=== PATIENT | male | born 1945 | race Caucasian/White ===

== ENCOUNTER 2021-01-07 02:47 | Inpatient (IN) ==
[2021-01-07] MEDS ORDERED: MORPHINE 2 MG/1 ML SYRINGE IV STA (03:10)
[2021-01-07] MEDS ORDERED: ONDANSETRON 4 MG/2 ML VIAL IV STA (03:10)
[2021-01-07] MEDS ORDERED: SODIUM CHLORIDE 0.9% 1,000 ML IV STA ×2 (03:10→04:11)
[2021-01-07] MEDS ORDERED: PANTOPRAZOLE 40 MG VIAL IV STA (03:10)
[2021-01-07 03:34] LABS: Basophils % 0.2 % (0.0-0.8); Hematocrit 44.3 VOL% (42.0-52.0); Hemoglobin 13.8 GM/DL (14.0-18.0); Immature Granulocytes % 0.9 %; Immature Granulocytes Absolute 0.05 #; Lymphocytes # 0.2 10*3/uL (1.4-4.0); Lymphocytes % 3.5 % (21.2-54.2); Mean Corpuscular HGB Conc 31.2 GM/DL (32-36); Mean Corpuscular Volume 86.7 FL (87-102); Mean Platelet Volume 9.9 FL (9.6-12.0); Neutrophils % 88.4 % (38.7-73.9); Platelet Count 271 T/CUMM (130-400); Red Blood Count 5.11 MC/CUMM (3.8-5.5); Red Cell Distribution Width 16.6 % (9.3-17.3); White Blood Count 5.4 T/CUMM (4-12)
[2021-01-07 03:53] LABS: Band Neutrophils 3 % (0-10); Lymphocytes 2 % (20-55); Segmented Neutrophils 89 % (50-85); Total Cells Counted 100
[2021-01-07 03:54] LABS: Platelet Estimate Adequate
[2021-01-07 04:06] LABS: Alanine Aminotransferase 20 U/L (16-61); Albumin 3.2 G/DL (3.4-5.0); Alkaline Phosphatase 105 U/L (45-117); Amylase 46 U/L (25-115); Aspartate Amino Transferase 10 U/L (0-37); Blood Urea Nitrogen 46 MG/DL (7-18); Calcium 10.2 MG/DL (8.5-10.1); Carbon Dioxide 11 MMOL/L (21-32); Estimated Glom Filtration Rate 31 ML/MIN; Osmolality,Calculated 322.4 MOS/KG (273-304); Potassium 4.3 MMOL/L (3.5-5.1); Sodium 140 MMOL/L (136-145); Total Protein 6.9 G/DL (6.4-8.2)
[2021-01-07 04:10] LABS: Glucose 677 MG/DL (74-106)
[2021-01-07 04:11] LABS: Bilirubin,Urine Negative (Negative); Blood, Urine Negative (Negative); Glucose,Urine (UA) >=500 mg/dL (Negative); Hyaline Casts,Urine 4 /LPF (0-3); Ketones,Urine 80 mg/dL (Negative); Mucus,Urine Occasional /LPF (Occasional); Nitrite,Urine Negative (Negative); Protein,Urine Negative; RBC,Urine 17 /HPF (0-4); Squamous Epithelial Cell,Urine Occasional /HPF (0-10); Urine Appearance Slightly Hazy (Clear); Urine Color Yellow (Yellow); Urine Specific Gravity 1.023 (1.001-1.035); Urine Urobilinogen < 2.0 EU/DL (0.2-1.0)
[2021-01-07] MEDS ORDERED: INSULIN REGULAR 100 UNIT/ML IV ONE (04:11)
[2021-01-07] MEDS ORDERED: PIPERACILLIN/TAZOBACTAM 2,250 MG in SODIUM CHLORIDE 0.9% 100 ML IV STA (04:22)
[2021-01-07 04:39] LABS: ABG Base Excess -17.2 MMOL/L (-2.5-2.5); ABG HCO3 11.8 MMOL/L (20-26); ABG Oxygen Saturation 98.5 % (95-100); ABG PH 7.272 (7.35-7.45); ABG TCO2 7.5 MMOL/L (23-27)
[2021-01-07 05:00] LABS: ABG PCO2 18.2 MM HG (35-48)
[2021-01-07] MEDS ORDERED: SODIUM BICARBONATE 50 MEQ/50 ML VIAL IV STA (05:01)
[2021-01-07] MEDS ORDERED: MAGNESIUM SULF RIDER 4 GM/100 ML PREMIX IV PRN (05:45)
[2021-01-07] MEDS ORDERED: MAGNESIUM SULF RIDER 2 GM/50 ML PREMIX IV PRN (05:45)
[2021-01-07] MEDS ORDERED: SODIUM PHOSPHATE INJ 20 MMOL in SODIUM CHLORIDE 0.9% 250 ML IV PRN (05:45)
[2021-01-07] MEDS ORDERED: DEXTROSE 50% 25 GM/50 ML VIAL IV PRN ×2 (05:45)
[2021-01-07] MEDS ORDERED: SODIUM BICARB INJ 100 MEQ in STERILE WATER INJ 400 ML IV PRN (05:45)
[2021-01-07] MEDS ORDERED: ALBUTEROL 2.5 MG/3 ML NEB RESP TX PRN (05:49)
[2021-01-07] MEDS ORDERED: ALBUTEROL/IPRATROPIUM 3 ML NEB RESP TX PRN (05:55)
[2021-01-07] MEDS ORDERED: DOCUSATE SODIUM 100 MG CAPSULE PO PRN (05:55)
[2021-01-07] MEDS ORDERED: ACETAMINOPHEN 325 MG TABLET PO PRN (05:55)
[2021-01-07] MEDS ORDERED: INSULIN REGULAR DRIP 100 ML IV SCH (06:00)
[2021-01-07] MEDS: SODIUM CHLORIDE 0.9% 1,000 ML IV SCH ×2 (06:00→09:14)
[2021-01-07] MEDS: ONDANSETRON 4 MG/2 ML VIAL IV PRN (06:16)
[2021-01-07 07:20] LABS: Calcium 9.7 MG/DL (8.5-10.1); Osmolality,Calculated 313.8 MOS/KG (273-304); Potassium 4.1 MMOL/L (3.5-5.1)
[2021-01-07] MEDS ORDERED: DEXTROSE 5% NACL 0.9% 1,000 ML IV SCH ×2 (08:11→11:30)
[2021-01-07] MEDS: ENOXAPARIN 30 MG/0.3 ML SYRINGE SUBCUT SCH (08:36)
[2021-01-07] MEDS ORDERED: SODIUM CHLORIDE 0.9% 1,000 ML IV SCH (11:00)
[2021-01-07 11:27] LABS: Calcium 8.9 MG/DL (8.5-10.1); Osmolality,Calculated 306.3 MOS/KG (273-304); Potassium 3.5 MMOL/L (3.5-5.1)
[2021-01-07] MEDS: POTASSIUM CHLORIDE RIDER 10 MEQ/100 ML PREMIX IV PRN ×3 (11:36→14:29)
[2021-01-07] MEDS ORDERED: DEXTROSE 5% NACL 0.45% 1,000 ML IV SCH (13:00)
[2021-01-07 14:42] LABS: Calcium 8.2 MG/DL (8.5-10.1); Osmolality,Calculated 309.1 MOS/KG (273-304); Potassium 3.9 MMOL/L (3.5-5.1)
[2021-01-07] MEDS: CARBIDOPA/LEVODOPA 10-100 MG TABLET PO SCH ×2 (14:47→20:19)
[2021-01-07] MEDS: TRIAMCINOLONE 0.025% CREAM 15 GM TUBE TOP SCH ×2 (14:47→20:19)
[2021-01-07] MEDS ORDERED: DEXT 5% NACL 0.45% KCL 20 MEQ 20 MEQ/1,000 ML BAG IV SCH (15:00)
[2021-01-07] MEDS ORDERED: GLUCAGON 1 MG VIAL IM PRN (16:44)
[2021-01-07] MEDS: SODIUM CHLORIDE 0.45% 1,000 ML IV SCH (16:54)
[2021-01-07] MEDS ORDERED: INSULIN LISPRO 100 UNIT/ML SUBCUT SCH (18:00)
[2021-01-07] MEDS: INSULIN LISPRO 100 UNIT/ML SUBCUT SCH (19:42)
[2021-01-07] MEDS: INSULIN GLARGINE 100 UNIT/ML SUBCUT SCH (20:19)
[2021-01-07] MEDS ORDERED: SODIUM CHLORIDE 0.45% 1,000 ML IV SCH (23:00)
[2021-01-08] MEDS: INSULIN LISPRO 100 UNIT/ML SUBCUT SCH ×4 (00:25→17:06)
[2021-01-08] MEDS: SODIUM CHLORIDE 0.45% 1,000 ML IV SCH ×3 (00:26→17:01)
[2021-01-08 03:46] LABS: Basophils % 0.3 % (0.0-0.8); Hematocrit 26.9 VOL% (42.0-52.0); Immature Granulocytes % 0.9 %; Immature Granulocytes Absolute 0.03 #; Lymphocytes # 0.2 10*3/uL (1.4-4.0); Lymphocytes % 6.3 % (21.2-54.2); Mean Corpuscular HGB Conc 32.7 GM/DL (32-36); Mean Platelet Volume 10.3 FL (9.6-12.0); Monocytes % 10.4 % (1.7-12.7); Neutrophils % 82.1 % (38.7-73.9); Red Cell Distribution Width 16.5 % (9.3-17.3)
[2021-01-08 03:48] LABS: Hemoglobin 8.8 GM/DL (14.0-18.0); Platelet Count 162 T/CUMM (130-400); Red Blood Count 3.24 MC/CUMM (3.8-5.5); White Blood Count 3.5 T/CUMM (4-12)
[2021-01-08 04:02] LABS: Band Neutrophils 1 % (0-10); Hypochromasia 1+; Lymphocytes 6 % (20-55); Microcytosis 1+; Platelet Estimate Adequate; Segmented Neutrophils 88 % (50-85); Total Cells Counted 100
[2021-01-08] MEDS: ENOXAPARIN 30 MG/0.3 ML SYRINGE SUBCUT SCH (08:14)
[2021-01-08] MEDS: TRIAMCINOLONE 0.025% CREAM 15 GM TUBE TOP SCH ×2 (08:17→20:50)
[2021-01-08] MEDS: CARBIDOPA/LEVODOPA 10-100 MG TABLET PO SCH ×3 (08:17→20:48)
[2021-01-08 08:28] LABS: Calcium 8.7 MG/DL (8.5-10.1); Potassium 3.5 MMOL/L (3.5-5.1)
[2021-01-08] MEDS: ONDANSETRON 4 MG/2 ML VIAL IV PRN (08:28)
[2021-01-08] MEDS ORDERED: PANTOPRAZOLE 40 MG VIAL IV SCH (09:00)
[2021-01-08] MEDS ORDERED: POTASSIUM PHOSPHATE 30 MMOL in SODIUM CHLORIDE 0.9% 250 ML IV ONE (09:00)
[2021-01-08] MEDS ORDERED: ASPIRIN 325 MG TABLET PO SCH (09:00)
[2021-01-08] MEDS: SUCRALFATE 1 GM/10 ML UDCUP PO SCH ×2 (16:07→20:48)
[2021-01-08] MEDS: LOSARTAN 25 MG TABLET PO SCH (17:55)
[2021-01-08] MEDS: INSULIN GLARGINE 100 UNIT/ML SUBCUT SCH (20:48)
[2021-01-08] MEDS: PANTOPRAZOLE 40 MG VIAL IV SCH (20:48)
[2021-01-09] MEDS: INSULIN LISPRO 100 UNIT/ML SUBCUT SCH ×4 (00:52→18:21)
[2021-01-09] MEDS: SODIUM CHLORIDE 0.45% 1,000 ML IV SCH ×2 (01:49→08:39)
[2021-01-09 04:04] LABS: Hematocrit 24.6 VOL% (42.0-52.0); Immature Granulocytes % 1.5 %; Immature Granulocytes Absolute 0.04 #; Lymphocytes # 0.2 10*3/uL (1.4-4.0); Lymphocytes % 6.8 % (21.2-54.2); Mean Corpuscular HGB Conc 32.5 GM/DL (32-36); Mean Corpuscular Volume 82.8 FL (87-102); Mean Platelet Volume 9.1 FL (9.6-12.0); Neutrophils % 82.7 % (38.7-73.9); Platelet Count 145 T/CUMM (130-400); Red Blood Count 2.97 MC/CUMM (3.8-5.5); Red Cell Distribution Width 16.8 % (9.3-17.3); White Blood Count 2.7 T/CUMM (4-12)
[2021-01-09 04:21] LABS: Calcium 8.1 MG/DL (8.5-10.1); Osmolality,Calculated 285.1 MOS/KG (273-304); Potassium 3.1 MMOL/L (3.5-5.1)
[2021-01-09 04:34] LABS: Band Neutrophils 1 % (0-10); Hypochromasia 1+; Lymphocytes 4 % (20-55); Microcytosis 1+; Segmented Neutrophils 87 % (50-85); Total Cells Counted 100
[2021-01-09 04:35] LABS: Platelet Estimate Adequate
[2021-01-09] MEDS: POTASSIUM CHLORIDE RIDER 10 MEQ/100 ML PREMIX IV PRN ×4 (04:35→10:54)
[2021-01-09] MEDS: LACTATED RINGERS 1,000 ML IV SCH (06:49)
[2021-01-09] MEDS ORDERED: LIDOCAINE 2% 5 ML VIAL ONE (07:14)
[2021-01-09] MEDS ORDERED: propofoL 200 MG/20 ML VIAL IV ONE (07:14)
[2021-01-09] MEDS: SUCRALFATE 1 GM/10 ML UDCUP PO SCH ×4 (07:30→21:25)
[2021-01-09] MEDS ORDERED: ceFAZolin 1,000 MG VIAL ONE (07:53)
[2021-01-09] MEDS: PANTOPRAZOLE 40 MG VIAL IV SCH (09:45)
[2021-01-09] MEDS: LOSARTAN 25 MG TABLET PO SCH (09:45)
[2021-01-09] MEDS: CARBIDOPA/LEVODOPA 10-100 MG TABLET PO SCH ×3 (09:45→21:25)
[2021-01-09] MEDS ORDERED: hydrALAZINE 20 MG/1 ML VIAL IV PRN (09:46)
[2021-01-09] MEDS: TRIAMCINOLONE 0.025% CREAM 15 GM TUBE TOP SCH ×2 (09:46→21:25)
[2021-01-09] MEDS: FLUCONAZOLE INJ 100 MG/50 ML PREMIX IV SCH (09:53)
[2021-01-09] MEDS: ZINC OXIDE PASTE 113 GM TUBE TOP PRN ×3 (10:31→16:50)
[2021-01-09] MEDS: PHENOL 1.4% THROAT SPRAY 177 ML BOTTLE PO PRN ×2 (14:05→16:50)
[2021-01-09] MEDS: INSULIN GLARGINE 100 UNIT/ML SUBCUT SCH (21:25)
[2021-01-10] MEDS: INSULIN LISPRO 100 UNIT/ML SUBCUT SCH ×4 (00:50→18:44)
[2021-01-10 04:21] LABS: Basophils % 0.3 % (0.0-0.8); Hematocrit 27.3 VOL% (42.0-52.0); Hemoglobin 8.9 GM/DL (14.0-18.0); Immature Granulocytes % 1.6 %; Immature Granulocytes Absolute 0.05 #; Lymphocytes # 0.2 10*3/uL (1.4-4.0); Lymphocytes % 6.4 % (21.2-54.2); Mean Corpuscular HGB Conc 32.6 GM/DL (32-36); Mean Corpuscular Volume 84.8 FL (87-102); Mean Platelet Volume 9.3 FL (9.6-12.0); Monocytes % 8.9 % (1.7-12.7); Neutrophils % 82.8 % (38.7-73.9); Platelet Count 159 T/CUMM (130-400); Red Blood Count 3.22 MC/CUMM (3.8-5.5); Red Cell Distribution Width 16.7 % (9.3-17.3); White Blood Count 3.1 T/CUMM (4-12)
[2021-01-10 04:40] LABS: Calcium 8.5 MG/DL (8.5-10.1); Osmolality,Calculated 281.4 MOS/KG (273-304); Potassium 3.2 MMOL/L (3.5-5.1)
[2021-01-10 04:49] LABS: Band Neutrophils 1 % (0-10); Eosinophils 1 % (0-10); Hypochromasia 1+; Lymphocytes 7 % (20-55); Microcytosis 1+; Platelet Estimate Adequate; Segmented Neutrophils 83 % (50-85); Total Cells Counted 100
[2021-01-10] MEDS: POTASSIUM CHLORIDE RIDER 10 MEQ/100 ML PREMIX IV PRN ×4 (06:05→12:01)
[2021-01-10] MEDS: SUCRALFATE 1 GM/10 ML UDCUP PO SCH ×4 (08:50→20:21)
[2021-01-10] MEDS: CARBIDOPA/LEVODOPA 10-100 MG TABLET PO SCH ×3 (08:50→20:21)
[2021-01-10] MEDS: FAMOTIDINE 8 MG/ML 50 ML/BOTTLE PEG SCH (08:50)
[2021-01-10] MEDS: LOSARTAN 25 MG TABLET PO SCH (08:50)
[2021-01-10] MEDS: ENOXAPARIN 30 MG/0.3 ML SYRINGE SUBCUT SCH (08:52)
[2021-01-10] MEDS: TRIAMCINOLONE 0.025% CREAM 15 GM TUBE TOP SCH ×2 (08:53→20:21)
[2021-01-10] MEDS: FLUCONAZOLE INJ 100 MG/50 ML PREMIX IV SCH (09:10)
[2021-01-10] MEDS: LACTATED RINGERS 1,000 ML IV SCH (10:58)
[2021-01-10] MEDS ORDERED: MAGNESIUM CITRATE 300 ML BOTTLE NG ONE (17:24)
[2021-01-10] MEDS: INSULIN GLARGINE 100 UNIT/ML SUBCUT SCH (20:21)
[2021-01-10] MEDS: POTASSIUM PHOS/SOD PHOS 250 MG TABLET PEG SCH (20:41)
[2021-01-11 06:31] LABS: Eosinophils % 0.2 % (0.00-10.9); Hematocrit 31.1 VOL% (42.0-52.0); Hemoglobin 10.2 GM/DL (14.0-18.0); Immature Granulocytes % 1.7 %; Immature Granulocytes Absolute 0.07 #; Lymphocytes # 0.2 10*3/uL (1.4-4.0); Lymphocytes % 5.4 % (21.2-54.2); Mean Corpuscular HGB Conc 32.8 GM/DL (32-36); Mean Corpuscular Volume 83.8 FL (87-102); Mean Platelet Volume 9.3 FL (9.6-12.0); Monocytes % 11.5 % (1.7-12.7); Neutrophils % 81.2 % (38.7-73.9); Platelet Count 173 T/CUMM (130-400); Red Blood Count 3.71 MC/CUMM (3.8-5.5); White Blood Count 4.1 T/CUMM (4-12)
[2021-01-11 07:02] LABS: Calcium 8.7 MG/DL (8.5-10.1); Osmolality,Calculated 277.1 MOS/KG (273-304)
[2021-01-11 07:06] LABS: Lymphocytes 4 % (20-55); Platelet Estimate Normal; Segmented Neutrophils 89 % (50-85); Total Cells Counted 100
[2021-01-11] MEDS ORDERED: MAGNESIUM SULF RIDER 2 GM/50 ML PREMIX IV ONE (08:00)
[2021-01-11] MEDS ORDERED: FLUCONAZOLE INJ 100 MG/50 ML PREMIX IV SCH (10:00)
[2021-01-11] MEDS: TRIAMCINOLONE 0.025% CREAM 15 GM TUBE TOP SCH (10:40)
[2021-01-11] MEDS: SUCRALFATE 1 GM/10 ML UDCUP PO SCH ×2 (10:40→12:27)
[2021-01-11] MEDS: POTASSIUM PHOS/SOD PHOS 250 MG TABLET PEG SCH ×2 (10:40→12:27)
[2021-01-11] MEDS: LOSARTAN 25 MG TABLET PO SCH (10:40)
[2021-01-11] MEDS: CARBIDOPA/LEVODOPA 10-100 MG TABLET PO SCH ×2 (10:40→16:19)
[2021-01-11] MEDS: FAMOTIDINE 8 MG/ML 50 ML/BOTTLE PEG SCH (10:41)
[2021-01-11] MEDS: ENOXAPARIN 30 MG/0.3 ML SYRINGE SUBCUT SCH (10:41)
[2021-01-11] MEDS: INSULIN LISPRO 100 UNIT/ML SUBCUT SCH ×2 (12:19)
[2021-01-11] MEDS: POTASSIUM CHLORIDE RIDER 10 MEQ/100 ML PREMIX IV PRN ×2 (12:19→13:22)
[2021-01-11 15:54] VITALS: BP 144/52
[2021-01-11] MEDS ORDERED: NYSTATIN 500,000 UNIT/5 ML UDCUP SWISH/SWAL SCH (17:00)
== END 2021-01-11 16:05 | disposition home health service (06) | DRG 638 ==
LOC: N.ED 02:47 → SUATTDRO 04:58 → N.EDINP 04:58 → N.ICU 05:40 → N.2W 01-10 20:46
PROVIDERS: ADMIT Family Medicine; ATTEND Internal Medicine
PROC: EGDWPEG (ICD-10-PCS; 2021-01-09 08:35)

== ENCOUNTER 2021-01-31 12:51 | Inpatient (IN) ==
[2021-01-31] MEDS ORDERED: SODIUM CHLORIDE 0.9% 1,000 ML IV STA (13:33)
[2021-01-31] MEDS ORDERED: INSULIN REGULAR 100 UNIT/ML IV STA (13:46)
[2021-01-31 14:07] LABS: ABG HCO3 20.3 MMOL/L (20-26); ABG Oxygen Saturation 99.5 % (95-100); ABG PH 7.566 (7.35-7.45); ABG TCO2 13.8 MMOL/L (23-27)
[2021-01-31 14:09] LABS: ABG PCO2 16.9 MM HG (35-48)
[2021-01-31 14:15] LABS: Basophils % 0.1 % (0.0-0.8); Hematocrit 35.5 VOL% (42.0-52.0); Hemoglobin 11.3 GM/DL (14.0-18.0); Immature Granulocytes % 1.2 %; Lymphocytes % 25.2 % (21.2-54.2); Mean Corpuscular HGB Conc 31.8 GM/DL (32-36); Mean Corpuscular Volume 89.4 FL (87-102); Mean Platelet Volume 9.4 FL (9.6-12.0); Monocytes % 5.6 % (1.7-12.7); Neutrophils % 67.9 % (38.7-73.9); Platelet Count 349 T/CUMM (130-400); Red Blood Count 3.97 MC/CUMM (3.8-5.5); Red Cell Distribution Width 21.2 % (9.3-17.3)
[2021-01-31 14:47] LABS: Albumin 2.6 G/DL (3.4-5.0); Calcium 10.1 MG/DL (8.5-10.1); Potassium 4.6 MMOL/L (3.5-5.1); Total Protein 6.7 G/DL (6.4-8.2)
[2021-01-31 14:52] LABS: Bilirubin,Total 0.5 MG/DL (0.20-1.00); Osmolality,Calculated 314.7 MOS/KG (273-304)
[2021-01-31] MEDS ORDERED: SODIUM PHOSPHATE INJ 17.6 MMOL in SODIUM CHLORIDE 0.9% 250 ML IV PRN (15:08)
[2021-01-31] MEDS ORDERED: DEXTROSE 50% 25 GM/50 ML VIAL IV PRN ×2 (15:08)
[2021-01-31] MEDS ORDERED: INSULIN REGULAR 100 UNIT/ML IV ONE (15:08)
[2021-01-31] MEDS ORDERED: SODIUM BICARB INJ 100 MEQ in STERILE WATER INJ 400 ML IV PRN (15:08)
[2021-01-31] MEDS ORDERED: ALBUTEROL 2.5 MG/3 ML NEB RESP TX PRN (15:08)
[2021-01-31] MEDS ORDERED: SODIUM CHLORIDE 0.9% 1,000 ML IV ONE (15:08)
[2021-01-31] MEDS ORDERED: MAGNESIUM SULF RIDER 2 GM/50 ML PREMIX IV PRN (15:09)
[2021-01-31] MEDS ORDERED: MAGNESIUM SULF RIDER 4 GM/100 ML PREMIX IV PRN (15:09)
[2021-01-31] MEDS ORDERED: INSULIN REGULAR DRIP 100 ML IV SCH (15:30)
[2021-01-31] MEDS: SODIUM CHLORIDE 0.9% 1,000 ML IV SCH ×2 (17:30→21:19)
[2021-01-31 18:22] LABS: Osmolality,Calculated 294.4 MOS/KG (273-304); Potassium 3.8 MMOL/L (3.5-5.1)
[2021-01-31] MEDS: DEXTROSE 5% NACL 0.9% 1,000 ML IV SCH ×2 (19:00→22:11)
[2021-01-31] MEDS ORDERED: SODIUM CHLORIDE 0.9% 1,000 ML IV SCH (20:30)
[2021-01-31 21:07] LABS: Bilirubin,Urine Negative (Negative); Blood, Urine Negative (Negative); Glucose,Urine (UA) >=500 mg/dL (Negative); Ketones,Urine 5 mg/dL (Negative); Mucus,Urine Occasional /LPF (Occasional); Nitrite,Urine Negative (Negative); Protein,Urine Negative; RBC,Urine 3 /HPF (0-4); Squamous Epithelial Cell,Urine Occasional /HPF (0-10); Urine Appearance CLEAR (Clear); Urine Color Yellow (Yellow); Urine Urobilinogen < 2.0 EU/DL (0.2-1.0)
[2021-01-31 23:31] LABS: Calcium 8.5 MG/DL (8.5-10.1); Osmolality,Calculated 295.4 MOS/KG (273-304); Potassium 3.6 MMOL/L (3.5-5.1)
[2021-02-01] MEDS: DEXTROSE 5% NACL 0.9% 1,000 ML IV SCH (00:06)
[2021-02-01] MEDS: POTASSIUM CHLORIDE RIDER 10 MEQ/100 ML PREMIX IV PRN ×4 (00:27→06:02)
[2021-02-01] MEDS: INSULIN REGULAR 100 UNIT/ML SUBCUT SCH ×6 (00:28→20:32)
[2021-02-01] MEDS: SODIUM CHLORIDE 0.45% 1,000 ML IV SCH ×2 (01:58→11:48)
[2021-02-01] MEDS: ONDANSETRON 4 MG/2 ML VIAL IV PRN (03:29)
[2021-02-01 03:59] LABS: Basophils % 0.2 % (0.0-0.8); Eosinophils % 0.4 % (0.00-10.9); Hematocrit 25.6 VOL% (42.0-52.0); Immature Granulocytes % 1.1 %; Immature Granulocytes Absolute 0.06 #; Lymphocytes # 0.9 10*3/uL (1.4-4.0); Lymphocytes % 15.6 % (21.2-54.2); Mean Corpuscular HGB Conc 32.4 GM/DL (32-36); Mean Corpuscular Volume 89.2 FL (87-102); Mean Platelet Volume 9.5 FL (9.6-12.0); Monocytes % 6.3 % (1.7-12.7); Neutrophils % 76.4 % (38.7-73.9); Red Cell Distribution Width 21.1 % (9.3-17.3); White Blood Count 5.6 T/CUMM (4-12)
[2021-02-01 04:00] LABS: Hemoglobin 8.3 GM/DL (14.0-18.0); Platelet Count 236 T/CUMM (130-400); Red Blood Count 2.87 MC/CUMM (3.8-5.5)
[2021-02-01 04:06] LABS: ABG HCO3 15.7 MMOL/L (20-26); ABG PH 7.539 (7.35-7.45); ABG PO2 140.8 MM HG (80-95); ABG TCO2 16.3 MMOL/L (23-27)
[2021-02-01 04:10] LABS: Bilirubin,Total 0.4 MG/DL (0.20-1.00); Calcium 8.3 MG/DL (8.5-10.1); Osmolality,Calculated 288.4 MOS/KG (273-304); Potassium 3.8 MMOL/L (3.5-5.1); Total Protein 5.1 G/DL (6.4-8.2)
[2021-02-01 04:12] LABS: ABG PCO2 18.8 MM HG (35-48)
[2021-02-01 04:24] LABS: Reactive Lymphocytes 1+
[2021-02-01 04:26] LABS: Anisocytosis 1+; Hypochromasia 1+; Microcytosis 1+; Platelet Estimate Normal
[2021-02-01] MEDS ORDERED: SODIUM CHLORIDE 0.45% 1,000 ML IV SCH (08:30)
[2021-02-01 09:15] LABS: Calcium 8.3 MG/DL (8.5-10.1); Potassium 4.1 MMOL/L (3.5-5.1)
[2021-02-01] MEDS ORDERED: POTASSIUM PHOSPHATE 30 MMOL in SODIUM CHLORIDE 0.9% 250 ML IV ONE (10:00)
[2021-02-01] MEDS ORDERED: PANTOPRAZOLE 40 MG TABLET PO SCH (12:00)
[2021-02-01 12:10] LABS: ABG Base Excess -2.5 MMOL/L (-2.5-2.5); ABG HCO3 19.7 MMOL/L (20-26); ABG Oxygen Saturation 97.2 % (95-100); ABG PCO2 24.8 MM HG (35-48); ABG PH 7.517 (7.35-7.45); ABG PO2 94.7 MM HG (80-95); ABG TCO2 20.4 MMOL/L (23-27)
[2021-02-01] MEDS: APIXABAN 2.5 MG TABLET PO SCH ×2 (12:20→21:31)
[2021-02-01] MEDS: FLUCONAZOLE 100 MG TABLET PO SCH (12:20)
[2021-02-01] MEDS: PANTOPRAZOLE 40 MG VIAL IV SCH (12:26)
[2021-02-01 12:31] LABS: Calcium 8.2 MG/DL (8.5-10.1); Osmolality,Calculated 284.8 MOS/KG (273-304); Potassium 4.1 MMOL/L (3.5-5.1)
[2021-02-01] MEDS: CARBIDOPA/LEVODOPA 10-100 MG TABLET PO SCH ×2 (14:10→21:31)
[2021-02-01] MEDS: INSULIN GLARGINE 100 UNIT/ML SUBCUT SCH (20:33)
[2021-02-02] MEDS: INSULIN REGULAR 100 UNIT/ML SUBCUT SCH ×6 (00:02→22:53)
[2021-02-02] MEDS: FLUCONAZOLE 100 MG TABLET PO SCH (08:25)
[2021-02-02] MEDS: APIXABAN 2.5 MG TABLET PO SCH ×2 (08:25→22:53)
[2021-02-02] MEDS: ASPIRIN EC 81 MG TABLET PO SCH (08:25)
[2021-02-02] MEDS: PANTOPRAZOLE 40 MG VIAL IV SCH (08:26)
[2021-02-02] MEDS: CARBIDOPA/LEVODOPA 10-100 MG TABLET PO SCH ×3 (08:28→22:52)
[2021-02-02] MEDS ORDERED: MAGNESIUM SULF RIDER 2 GM/50 ML PREMIX IV PRN (11:28)
[2021-02-02 13:30] LABS: Basophils % 0.3 % (0.0-0.8); Eosinophils % 0.5 % (0.00-10.9); Hematocrit 25.5 VOL% (42.0-52.0); Hemoglobin 7.9 GM/DL (14.0-18.0); Immature Granulocytes % 4.2 %; Immature Granulocytes Absolute 0.16 #; Lymphocytes # 0.7 10*3/uL (1.4-4.0); Lymphocytes % 17.7 % (21.2-54.2); Mean Corpuscular Volume 90.7 FL (87-102); Mean Platelet Volume 9.2 FL (9.6-12.0); Monocytes % 7.7 % (1.7-12.7); Neutrophils % 69.6 % (38.7-73.9); Platelet Count 190 T/CUMM (130-400); Red Blood Count 2.81 MC/CUMM (3.8-5.5); Red Cell Distribution Width 20.9 % (9.3-17.3); White Blood Count 3.8 T/CUMM (4-12)
[2021-02-02 14:02] LABS: Alanine Aminotransferase 15 U/L (16-61); Albumin 1.8 G/DL (3.4-5.0); Alkaline Phosphatase 118 U/L (45-117); Aspartate Amino Transferase 17 U/L (0-37); Band Neutrophils 4 % (0-10); Bilirubin,Total < 0.39 MG/DL (0.20-1.00); Blood Urea Nitrogen 23 MG/DL (7-18); Calcium 8.2 MG/DL (8.5-10.1); Carbon Dioxide 25 MMOL/L (21-32); Eosinophils 1 % (0-10); Estimated Glom Filtration Rate 93 ML/MIN; Glucose 242 MG/DL (74-106); Lymphocytes 12 % (20-55); Metamyelocytes 1 %; Myelocytes 1 %; Osmolality,Calculated 279.2 MOS/KG (273-304); Potassium 4.3 MMOL/L (3.5-5.1); Segmented Neutrophils 76 % (50-85); Sodium 134 MMOL/L (136-145); Total Cells Counted 100; Total Protein 4.9 G/DL (6.4-8.2)
[2021-02-02 14:05] LABS: Anisocytosis 2+; Hypochromasia Slight; Macrocytosis 2+; Microcytosis 2+; Platelet Estimate Adequate; Polychromasia 1+
[2021-02-02 14:06] LABS: Dohle Bodies 1+; Toxic Granulation 1+
[2021-02-02] MEDS: MAGNESIUM SULF RIDER 2 GM/50 ML PREMIX IV PRN (14:42)
[2021-02-02] MEDS: METOPROLOL TARTRATE 25 MG TABLET PO SCH (22:52)
[2021-02-02] MEDS: INSULIN GLARGINE 100 UNIT/ML SUBCUT SCH (22:54)
[2021-02-03] MEDS: INSULIN REGULAR 100 UNIT/ML SUBCUT SCH ×6 (03:16→22:10)
[2021-02-03 05:36] LABS: Basophils % 0.3 % (0.0-0.8); Eosinophils % 0.5 % (0.00-10.9); Hematocrit 24.5 VOL% (42.0-52.0); Hemoglobin 7.7 GM/DL (14.0-18.0); Immature Granulocytes % 4.1 %; Immature Granulocytes Absolute 0.15 #; Lymphocytes # 0.8 10*3/uL (1.4-4.0); Lymphocytes % 22.3 % (21.2-54.2); Mean Corpuscular HGB Conc 31.4 GM/DL (32-36); Mean Corpuscular Volume 90.4 FL (87-102); Mean Platelet Volume 9.4 FL (9.6-12.0); Monocytes % 8.4 % (1.7-12.7); Neutrophils % 64.4 % (38.7-73.9); Platelet Count 179 T/CUMM (130-400); Red Blood Count 2.71 MC/CUMM (3.8-5.5); Red Cell Distribution Width 20.9 % (9.3-17.3); White Blood Count 3.7 T/CUMM (4-12)
[2021-02-03 05:54] LABS: Calcium 8.4 MG/DL (8.5-10.1); Osmolality,Calculated 271.7 MOS/KG (273-304); Potassium 4.4 MMOL/L (3.5-5.1)
[2021-02-03 05:59] LABS: Band Neutrophils 1 % (0-10); Eosinophils 1 % (0-10); Hypochromasia 1+; Lymphocytes 14 % (20-55); Microcytosis 1+; Nucleated Red Blood Cells 2 (0-5); Platelet Estimate Adequate; Segmented Neutrophils 74 % (50-85); Total Cells Counted 100
[2021-02-03] MEDS ORDERED: SODIUM CHLORIDE 0.9% 500 ML IV ONE (08:13)
[2021-02-03] MEDS: SODIUM CHLORIDE 0.9% 1,000 ML IV SCH (09:12)
[2021-02-03] MEDS: ASPIRIN EC 81 MG TABLET PO SCH (10:21)
[2021-02-03] MEDS: APIXABAN 2.5 MG TABLET PO SCH ×2 (10:21→22:12)
[2021-02-03] MEDS: FLUCONAZOLE 100 MG TABLET PO SCH (10:21)
[2021-02-03] MEDS: CARBIDOPA/LEVODOPA 10-100 MG TABLET PO SCH ×3 (10:22→22:12)
[2021-02-03] MEDS: PANTOPRAZOLE 40 MG VIAL IV SCH (10:22)
[2021-02-03] MEDS: METOPROLOL TARTRATE 25 MG TABLET PO SCH (13:37)
[2021-02-03] MEDS: ONDANSETRON 4 MG/2 ML VIAL IV PRN (16:45)
[2021-02-03] MEDS: INSULIN GLARGINE 100 UNIT/ML SUBCUT SCH (22:11)
[2021-02-04] MEDS: METOPROLOL TARTRATE 25 MG TABLET PO SCH ×3 (01:34→21:15)
[2021-02-04] MEDS: SODIUM CHLORIDE 0.9% 1,000 ML IV SCH ×2 (01:47→19:52)
[2021-02-04] MEDS: INSULIN REGULAR 100 UNIT/ML SUBCUT SCH ×6 (01:52→21:15)
[2021-02-04 06:53] LABS: Basophils % 0.3 % (0.0-0.8); Eosinophils % 0.6 % (0.00-10.9); Hematocrit 23.9 VOL% (42.0-52.0); Hemoglobin 7.6 GM/DL (14.0-18.0); Immature Granulocytes % 6.4 %; Immature Granulocytes Absolute 0.21 #; Lymphocytes # 0.6 10*3/uL (1.4-4.0); Lymphocytes % 19.3 % (21.2-54.2); Mean Corpuscular HGB Conc 31.8 GM/DL (32-36); Mean Corpuscular Volume 90.2 FL (87-102); Mean Platelet Volume 9.6 FL (9.6-12.0); Neutrophils % 65.4 % (38.7-73.9); Platelet Count 186 T/CUMM (130-400); Red Blood Count 2.65 MC/CUMM (3.8-5.5); Red Cell Distribution Width 21.2 % (9.3-17.3); White Blood Count 3.3 T/CUMM (4-12)
[2021-02-04 07:22] LABS: Anisocytosis 2+; Band Neutrophils 15 % (0-10); Lymphocytes 15 % (20-55); Metamyelocytes 2 %; Nucleated Red Blood Cells 1 (0-5); Platelet Estimate Normal; Segmented Neutrophils 60 % (50-85); Spherocytes Few; Total Cells Counted 100
[2021-02-04 07:24] LABS: Macrocytosis 1+
[2021-02-04 07:26] LABS: Calcium 8.3 MG/DL (8.5-10.1); Osmolality,Calculated 270.4 MOS/KG (273-304); Potassium 4.1 MMOL/L (3.5-5.1)
[2021-02-04] MEDS: APIXABAN 2.5 MG TABLET PO SCH ×2 (11:35→21:15)
[2021-02-04] MEDS: CARBIDOPA/LEVODOPA 10-100 MG TABLET PO SCH ×3 (11:35→21:15)
[2021-02-04] MEDS: FLUCONAZOLE 100 MG TABLET PO SCH (11:35)
[2021-02-04] MEDS: ASPIRIN EC 81 MG TABLET PO SCH (11:35)
[2021-02-04] MEDS: PANTOPRAZOLE 40 MG VIAL IV SCH (11:36)
[2021-02-04] MEDS: INSULIN GLARGINE 100 UNIT/ML SUBCUT SCH (21:15)
[2021-02-05] MEDS: INSULIN REGULAR 100 UNIT/ML SUBCUT SCH ×7 (01:10→23:53)
[2021-02-05 06:14] LABS: Basophils % 0.3 % (0.0-0.8); Eosinophils % 1.1 % (0.00-10.9); Hematocrit 25.2 VOL% (42.0-52.0); Hemoglobin 7.9 GM/DL (14.0-18.0); Immature Granulocytes % 5.1 %; Immature Granulocytes Absolute 0.19 #; Lymphocytes % 26.6 % (21.2-54.2); Mean Corpuscular HGB Conc 31.3 GM/DL (32-36); Mean Corpuscular Volume 91.3 FL (87-102); Mean Platelet Volume 9.2 FL (9.6-12.0); Neutrophils % 57.9 % (38.7-73.9); Platelet Count 211 T/CUMM (130-400); Red Blood Count 2.76 MC/CUMM (3.8-5.5); Red Cell Distribution Width 20.8 % (9.3-17.3); White Blood Count 3.8 T/CUMM (4-12)
[2021-02-05 06:23] LABS: Calcium 8.5 MG/DL (8.5-10.1); Potassium 3.9 MMOL/L (3.5-5.1)
[2021-02-05 06:44] LABS: Band Neutrophils 2 % (0-10); Eosinophils 3 % (0-10); Hypochromasia 1+; Lymphocytes 22 % (20-55); Microcytosis 1+; Platelet Estimate Adequate; Segmented Neutrophils 61 % (50-85); Total Cells Counted 100
[2021-02-05] MEDS: PANTOPRAZOLE 40 MG VIAL IV SCH (09:22)
[2021-02-05] MEDS: FLUCONAZOLE 100 MG TABLET PO SCH (09:25)
[2021-02-05] MEDS: ASPIRIN EC 81 MG TABLET PO SCH (09:25)
[2021-02-05] MEDS: LOSARTAN 25 MG TABLET PO SCH (09:25)
[2021-02-05] MEDS: CARBIDOPA/LEVODOPA 10-100 MG TABLET PO SCH ×3 (09:25→21:07)
[2021-02-05] MEDS: METOPROLOL TARTRATE 25 MG TABLET PO SCH ×2 (09:26→21:08)
[2021-02-05] MEDS: APIXABAN 2.5 MG TABLET PO SCH ×2 (09:26→21:08)
[2021-02-05] MEDS: ONDANSETRON 4 MG/2 ML VIAL IV PRN (12:46)
[2021-02-05] MEDS: SODIUM CHLORIDE 0.9% 1,000 ML IV SCH (19:01)
[2021-02-05] MEDS: INSULIN GLARGINE 100 UNIT/ML SUBCUT SCH (21:07)
[2021-02-06 05:32] LABS: Basophils % 0.5 % (0.0-0.8); Eosinophils % 0.7 % (0.00-10.9); Hematocrit 25.5 VOL% (42.0-52.0); Hemoglobin 8.1 GM/DL (14.0-18.0); Immature Granulocytes % 2.5 %; Lymphocytes # 1.1 10*3/uL (1.4-4.0); Lymphocytes % 26.9 % (21.2-54.2); Mean Corpuscular HGB Conc 31.8 GM/DL (32-36); Mean Corpuscular Volume 90.7 FL (87-102); Mean Platelet Volume 9.4 FL (9.6-12.0); Monocytes % 10.4 % (1.7-12.7); NRBC # 0.02 10*3/uL; Platelet Count 236 T/CUMM (130-400); Red Blood Count 2.81 MC/CUMM (3.8-5.5); Red Cell Distribution Width 20.7 % (9.3-17.3)
[2021-02-06] MEDS: INSULIN REGULAR 100 UNIT/ML SUBCUT SCH ×3 (05:46→12:14)
[2021-02-06 06:02] LABS: Eosinophils 1 % (0-10); Lymphocytes 14 % (20-55); Segmented Neutrophils 76 % (50-85); Total Cells Counted 100
[2021-02-06 06:03] LABS: Hypochromasia 1+; Microcytosis 1+; Platelet Estimate Adequate
[2021-02-06 06:08] LABS: Calcium 8.4 MG/DL (8.5-10.1)
[2021-02-06] MEDS ORDERED: TUBERCULIN SKIN TEST 0.1 ML SYRINGE INTRADERM ONE (08:50)
[2021-02-06] MEDS: MAGNESIUM SULF RIDER 2 GM/50 ML PREMIX IV PRN (09:32)
[2021-02-06] MEDS: METOPROLOL TARTRATE 25 MG TABLET PO SCH (10:14)
[2021-02-06] MEDS: LOSARTAN 25 MG TABLET PO SCH (10:18)
[2021-02-06] MEDS: APIXABAN 2.5 MG TABLET PO SCH (10:33)
[2021-02-06] MEDS: ASPIRIN EC 81 MG TABLET PO SCH (10:33)
[2021-02-06] MEDS: FLUCONAZOLE 100 MG TABLET PO SCH (10:33)
[2021-02-06] MEDS: CARBIDOPA/LEVODOPA 10-100 MG TABLET PO SCH (10:34)
[2021-02-06 11:18] VITALS: BP 108/47
[2021-02-06] MEDS: PANTOPRAZOLE 40 MG VIAL IV SCH (12:14)
[2021-02-06] MEDS ORDERED: INSULIN GLARGINE 100 UNIT/ML SUBCUT SCH (21:00)
== END 2021-02-06 13:25 | disposition swing bed (61) | DRG 638 ==
LOC: N.ED 12:51 → N.EDINP 15:08 → SUATTDRO 15:08 → N.CC 17:18 → N.2W 02-02 16:07
PROVIDERS: ADMIT Internal Medicine; ATTEND Internal Medicine